=== PATIENT | male | born 1955 | race Caucasian/White ===

== ENCOUNTER 2021-11-09 08:44 | Outpatient (REF) | payer SELFPAY ==
[2021-11-12 10:18] LABS: PSA, Screening 2.5 ng/mL (<=4.5)
== END 2021-11-09 08:45 | disposition home or self-care (01) ==
LOC: NCHCN 08:44
PROVIDERS: Visit Provider Nurse Practitioner Family
DX: Z12.5 Encounter for screening for malignant neoplasm of prostate (principal)
CPT/HCPCS: 84153